=== PATIENT | male | born 1990 | race Caucasian/White ===

== ENCOUNTER 2021-02-03 16:30 | Outpatient (RCR) | payer OTHER, SELFPAY ==
--- NOTE | 2020-12-31 15:56 | HP.PTEVAL_ITS ---
Patient's Visit Information ALYSSA LEYVA is a 30 year old M referred to Physical Therapy by LEONARDO Fonseca with a diagnosis of LBP. Date of Evaluation: 12/31/20 Physical Therapist: Javi Bellamy, PT, ATC - Visit Plan Frequency: 2-3x /Week Duration: 10 Plan: Postural edu, REIL, L/S stab ex's, and HEP - Subjective DOI: 11/26/20. Pt reports he was lifting heavy bars at work which required him to lift and twist with his LB on that date. Pt reports he awoke that morning with no pain, and by the time his work was finished, he had difficulty with walking. Pt notes on the date of injury he had L LE radiculopathy that extended down to h is knee. Pt reports he has no L LE radiculopathy this date. Pt reports sleep difficulty at night without pain pills. Pt reports his pain has gotten bertter since DOI, but he still needs pain meds and muscle relaxers to get by day to day. 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 Pt had xrays which he has yet to hear the results. - Pain LBP Pain Intensity (Out of 10): 2 Pain Intensity Range: 7 - Objective Neuro: B LE sensation is WNL to light touch. B patellar reflex= 2/3. MMT: R LE is grossly 4/5 throughout. R knee 5/5 throughout with exception to Knee ext= 4/5. ROM: L/S ext and L SB are moderately limited. All other motions are WNL. Repeated movements: RFIS 10x3 peripheralized sx's. REIL had NE - Goals Goal 1:: Decrease LBP x 50 % to aid with sleep Goal Time Frame: 4-6 Weeks Goal 2:: Decrease the frequency and intensity of LE radiculopathy x 50% to aid with tolerance for standing Goal Time Frame: 4-6 Weeks Goal 3:: Increase L/S ext ROM to WNL to aid with decreasing LBP Goal Time Frame: 4-6 Weeks Goal 4:: I with HEP Goal Time Frame: 4-6 Weeks - Rehabilitation Potential Physical Therapy Diagnosis: Pt has LBP, L LE radiculopathy, and limited L/S ROM secondary to lumbar spine disc derrangement. Rehabilitation Potential: Good - Anticipated Interventions Thank you for the opportunity to evaluate your patient. For Medicare and Medicare HMO plans, please review the plan of care and approve it. It will need to be FAXED BACK to us at [phone] for Medicare purposes. For Medicare only, by signing this I certify the plan of care. Please let me know if there are questions or concerns regarding this plan of care. Physician Signature: Date:
--- NOTE | 2021-02-03 16:56 | HP.PTDCSUM ---
It has been my pleasure to treat ALYSSA LEYVA referred by LEONARDO Fonseca, with the diagnosis of LBP for a total of 9 visit(s). Discharge Date: Please see the following information for a summary of their discharge status. Subjective: I am ready for discharge. I dont really have pain now LBP Pain Intensity (Out of 10): 0 % Improvement: 95 Objective/Function: LBP now 0/10. L/S ROM is now WNL. No LE tingling or numbness anymore. Pt is I with HEP. Rx goals achieved Goal 1:: Decrease LBP x 50 % to aid with sleep Goal Progress: Goal Met Goal 2:: Decrease the frequency and intensity of LE radiculopathy x 50% to aid with tolerance for standing Goal Progress: Goal Met Goal 3:: Increase L/S ext ROM to WNL to aid with decreasing LBP Goal Progress: Goal Met Goal 4:: I with HEP Goal Progress: Goal Met Plan: Discharge If there are questions or concerns regarding this patient's physical therapy, please feel free to call me at [phone]. Thank you for the referral of this patient. Sincerely, Javi Bellamy, PT, ATC
== END 2021-02-03 19:00 | disposition home or self-care (01) ==
LOC: PT 16:30
PROVIDERS: Referring Provider Physician Assistant; Visit Provider Physician Assistant
DX: S29.019D Strain of muscle and tendon of unspecified wall of thorax, subsequent encounter (principal); S39.012D Strain of muscle, fascia and tendon of lower back, subsequent encounter; X58.XXXD Exposure to other specified factors, subsequent encounter; M54.16 Radiculopathy, lumbar region
CPT/HCPCS: 97110; 97161; 97164